=== PATIENT | male | born 1955 | race Caucasian/White ===

== ENCOUNTER 2016-09-11 17:33 | Observation (INO) ==
[2016-09-11] MEDS ORDERED: *HR* LORazepam 1 MG TABLET PO ONE (18:37)
[2016-09-11] MEDS ORDERED: Ipratropium/Albuterol Neb 3 ML IH ONE ×2 (18:37→19:57)
[2016-09-11 18:46] LABS: Basophils % 0.3 %; Eosinophils # 0.1 K/mcL (0.0-0.6); Eosinophils % 0.8 %; Hematocrit 39.6 % (37.5-50.1); Hemoglobin 12.2 g/dL (12.9-16.9); Immature Granulocytes % 0.3 % (0-4); Lymphocytes # 1.1 K/mcL (0.6-4.6); Lymphocytes % 15.7 %; Mean Corpuscular HGB Conc 30.8 g/dL (31.6-35.5); Mean Corpuscular Hemoglobin 28.8 pg (28.0-33.3); Mean Corpuscular Volume 93.6 fL (83.0-100.0); Mean Platelet Volume 10.5 fL (9.4-12.4); Monocytes # 0.7 K/mcL (0.0-1.3); Monocytes % 9.7 %; Neutrophils # 5.3 K/mcL (1.6-8.9); Platelet Count 107 K/mcL (140-400); Red Blood Count 4.23 M/mcL (4.19-5.50); Red Cell Distribution Width 14.4 % (11.5-14.5); Segmented Neutrophils % 73.2 %
[2016-09-11 18:53] LABS: INR 1.2; Prothrombin Time 12.6 Seconds (9.4-12.1)
[2016-09-11 18:56] LABS: Activated Partial Thrombo Time 28.8 Seconds (26.0-36.0)
[2016-09-11 18:59] LABS: Albumin 3.5 g/dL (3.5-5.0); Albumin/Globulin Ratio 0.9 (1.1-2.2); Bilirubin,Direct 0.2 mg/dL (0.0-0.5); Bilirubin,Indirect 0.2 mg/dL (0.0-1.2); Bilirubin,Total 0.4 mg/dL (0.2-1.2); Calcium 9.3 mg/dL (8.6-10.8); Globulin 3.9 g/dL (2.4-3.5); Potassium 3.6 mEq/L (3.5-4.5); Total Protein 7.4 g/dL (6.0-8.3)
--- NOTE | 2016-09-11 19:02 | Emergency Department Note ---
START Narrative - START START: 61-year-old obese male with history of A. fib not anticoagulated, hypertension, COPD and CHF presents with a two-week history of worsening dyspnea. He denies fever, chills, nausea, vomiting, productive cough or hemoptysis. He has audible wheezing, but is able to speak in short sentences. He has severe pitting edema in bilat extremities. Dyspnea protocol orders entered. Patient given a duoneb. He will be moved to a bed as soon as possible.
[2016-09-11] MEDS ORDERED: predniSONE 20 MG TABLET PO ONE (19:58)
[2016-09-11] MEDS ORDERED: Furosemide 40 MG/4 ML VIAL IVP ONE (19:59)
--- NOTE | 2016-09-11 20:01 | Emergency Department Note ---
Disposition Clinical Impression: Acute exacerbation of chronic obstructive airways disease Acute CHF Qualifiers: Congestive heart failure type: systolic Qualified Code(s): I50.21 - Acute systolic (congestive) heart failure Disposition: Admitted As Inpatient Condition: Undetermined Time of Disposition: 20:22 SOB HPI - General Chief Complaint: ED Shortness of Breath/Dyspnea Stated Complaint: BO Time Seen by Provider: 09/11/16 18:29 Source: patient, family Mode of arrival: wheelchair Limitations: physical limitation, other Nursing Notes Reviewed: Yes Vital Signs Reviewed: Yes - History of Present Illness 61-year-old male with history of atrial fibrillation, CHF, COPD, asthma, right [facility] emergency department complaining of difficulty breathing. The patient states that over the course the past 3-4 weeks he has been experiencing swelling of bilateral lower extremities as well as his pelvic region. The patient states he takes Lasix 40 mg twice a day. The patient states that over the course of the past 5 hours he has been experiencing difficulty breathing. The patient's states that the patient walked outside in the heat and began working and that is when he acutely began experiencing wheezing and difficulty breathing. Upon arrival to the emergency department the patient was wheezing and was administered 1 DuoNeb. The patient still feels slightly short of breath at this time but his wheezing is improved slightly. The patient has oxygen at home that he was originally to wear at night only but states that he has been wearing it [id number] over the past few weeks. The patient denies any chest pain, unilateral leg swelling. The patient denies any other complaints and is sitting on the wheelchair being wheeled back to the room speaking full sentences. Pt Subjective Complaint: shortness of breath Severity: mild, moderate Consistency/Duration: intermittent Improves with: oxygen, bronchodilators, upright position Worsens with: exertion Known history of: COPD, asthma, congestive heart failure Associated symptoms: Reports: wheezing Treatment prior to arrival: oxygen, bronchodilator Cough present: No Sputum production: No - Related Data Home oxygen amount: 2 liters Home Medications Medication Instructions Recorded Confirmed Aspirin Enteric Coated [Aspirin EC] 325 mg PO DAILY 05/14/15 09/11/16 Bupropion HCl [Wellbutrin Xl] 300 mg PO DAILY 05/14/15 09/11/16 Furosemide [Lasix] 40 mg PO BID 05/14/15 09/11/16 Albuterol Sulfate [Proair Hfa] 2 puff IH Q4H PRN 09/11/16 09/11/16 Ascorbate Calcium [Vitamin C] 500 mg PO BID 09/11/16 09/11/16 Ergocalciferol (VITAMIN D2) 400 unit PO QWEEK 09/11/16 09/11/16 [Vitamin D] Insulin Glargine,Hum.rec.anlog 40 unit SQ BID 09/11/16 09/11/16 [Basaglar Kwikpen U-100] LORazepam [Ativan] 0.5 mg PO DAILY PRN 09/11/16 09/11/16 Losartan Potassium [Cozaar] 50 - 100 mg PO DAILY 09/11/16 09/11/16 Multivitamin [Multi-Day Vitamins] 1 each PO DAILY 09/11/16 09/11/16 Saw [place] 160 mg PO DAILY 09/11/16 09/11/16 Vitamin E Acid Succinate [Vitamin 400 units PO DAILY 09/11/16 09/11/16 E] Allergies Allergy/AdvReac Type Severity Reaction Status Date / Time No Known Allergies Allergy Verified 05/14/15 16:12 All systems ED: reviewed and negative except as stated. Constitutional: Denies: fever, chills, weakness, weight change Eyes: Denies: eye pain, eye discharge, vision change ENT ED: Denies: ear pain, throat pain, dental pain, hearing loss, epistaxis, congestion, dysphagia Cardiovascular: Reports: dyspnea on exertion, edema. Denies: chest pain, palpitations, syncope Respiratory: Reports: dyspnea, wheezes. Denies: cough, hemoptysis, stridor Gastrointestinal: Denies: abdominal pain, nausea, vomiting, diarrhea, constipation, hematemesis, melena, hematochezia Genitourinary: Denies: urgency, dysuria, frequency, hematuria Musculoskeletal: Denies: back pain, neck pain, arthralgia, myalgia Integumentary: Denies: rash, abrasion, lesions Neurological: Denies: headache, weakness, numbness, paresthesias, confusion, abnormal gait, vertigo Past Medical History - Past Medical History Attestation: Yes The following information was validated with the patient. Source: patient Medical history: Reports: atrial fibrillation, cirrhosis, CHF, COPD, diabetes, hypertension Psychiatric history: Reports: anxiety, depression - Social History Smoking Status: Former smoker Smokeless Tobacco Status: No Alcohol use: Reports: none Drug use: Reports: none Physical Exam - General Limitations: physical limitation, other General appearance: alert, in no apparent distress - Head Head exam: atraumatic, normocephalic, normal inspection - Eye Eye exam: Present: normal appearance, PERRL, EOMI - ENT ENT exam: normal exam, normal oropharynx, mucous membranes moist - Chest Chest inspection: Present: normal inspection, symmetric chest wall rise - Respiratory Respiratory exam: Present: wheezes, accessory muscle use, prolonged expiratory phase - Cardiovascular Cardiovascular exam: Present: normal rhythm, irregular rhythm, normal heart sounds - Abdominal Exam Abdominal exam: Present: soft, Non-Tender. Absent: tenderness, distention, guarding, rebound, rigidity - Extremities Exam Extremities exam: Present: full ROM, pedal edema (Bilateral 1-2+ pitting). Absent: tenderness - Neurological Exam Neurological exam: Present: alert, oriented X3 Course Vital Signs Temperature 98.6 F 09/11/16 18:22 Pulse Rate 70 09/11/16 18:22 Respiratory Rate 22 09/11/16 18:22 Blood Pressure 150/68 09/11/16 18:22 O2 Sat by Pulse Oximetry 95 09/11/16 18:22 Temperature 98.6 F 09/11/16 18:22 Pulse Rate 70 09/11/16 20:25 Respiratory Rate 20 09/11/16 21:06 Blood Pressure 149/78 09/11/16 21:06 O2 Sat by Pulse Oximetry 93 09/11/16 20:25 Oxygen Delivery Oxygen Delivery Nasal Cannula Shortness of Breath/Dyspnea - [facility] Narrative Medical decision making narrative: Patient's workup here in the emergency department demonstrates an elevated CO2 on the MP. The patient has an O2 saturation that is in the upper 90s on 2 L nasal cannula and is mentating appropriately. Patient's chest x-ray does suggest findings consistent with CHF with a mildly elevated BNP. This is likely a combination of possible CHF exacerbation versus COPD exacerbation. The patient does have an extensive history of asthma and COPD and was walking outside when he was experiencing his worsening shortness of breath. The patient however has been experiencing worsening abdominal and lower extremity swelling over the course of the past few weeks. Again given this picture this is likely a combination of the 2. The patient was given 3 duo nebs here in the emergency department as well as by mouth steroids. The patient was administered IV Lasix as well. The patient is able to speak in complete sentences at this time. He is resting comfortably on 2 L nasal cannula. The patient does have wheezing is still present prior to administration of the second set of duo nebs, as he was only administered one DuoNeb in fast track area. We had an extensive conversation with the patient and significant other about admission versus going home and we feel comfortable admitting the patient to the hospital at this time for further care and workup. The patient agrees to IV diuresis as well as breathing treatments with admission to likely observation unit. The patient has no unilateral leg swelling, no recent surgeries or immobilizations. Patient does have an atrial fibrillation history but is not currently in atrial fibrillation. She accepted by hospitalist, Dr. Timmons. - Medical Records Medical records reviewed: Yes I reviewed the patient's medical records. - Lab Data Lab results reviewed: Yes I reviewed the patient's lab results. Result diagrams: 09/11/16 18:39 09/11/16 18:39 Lab Results 09/11/16 09/11/16 09/11/16 Range/Units 18:39 18:39 18:39 WBC 7.2 (4.3-11.1) K/mcL RBC 4.23 (4.19-5.50) M/mcL Hgb 12.2 L (12.9-16.9) g/dL Hct 39.6 (37.5-50.1) % MCV 93.6 (83.0-100.0) fL MCH 28.8 (28.0-33.3) pg MCHC 30.8 L (31.6-35.5) g/dL RDW 14.4 (11.5-14.5) % Plt Count 107 L (140-400) K/mcL MPV 10.5 (9.4-12.4) fL Immature Gran % 0.3 (0-4) % Seg Neutrophils % 73.2 % Lymphocytes % 15.7 % Monocytes % 9.7 % Eosinophils % 0.8 % Basophils % 0.3 % Neutrophils # 5.3 (1.6-8.9) K/mcL Lymphocytes # 1.1 (0.6-4.6) K/mcL Monocytes # 0.7 (0.0-1.3) K/mcL Eosinophils # 0.1 (0.0-0.6) K/mcL Basophils # 0.0 (0.0-0.2) K/mcL PT 12.6 H (9.4-12.1) Seconds INR 1.2 APTT 28.8 (26.0-36.0) Seconds Sodium 144 (136-145) mEq/L Potassium 3.6 (3.5-4.5) mEq/L Chloride 99 (98-109) mEq/L Carbon Dioxide 40 H* (19-29) mEq/L BUN 22 (8-26) mg/dL Creatinine 1.47 H (0.72-1.25) mg/dL Est GFR ( Amer) 59 L (> 60) Est GFR (Non-Af Amer) 49 L (> 60) BUN/Creatinine Ratio 15 (6-26) Glucose 90 (70-99) mg/dL Calculated Osmolality 301 H (280-300) Calcium 9.3 (8.6-10.8) mg/dL Total Bilirubin 0.4 (0.2-1.2) mg/dL Direct Bilirubin 0.2 (0.0-0.5) mg/dL Indirect Bilirubin 0.2 (0.0-1.2) mg/dL AST 23 (5-34) Units/L ALT 15 (0-55) Units/L Alkaline Phosphatase 80 (38-126) Units/L Troponin I (0-0.03) ng/mL B-Natriuretic Peptide (0-100) pg/mL Serum Total Protein 7.4 (6.0-8.3) g/dL Albumin 3.5 (3.5-5.0) g/dL Globulin 3.9 H (2.4-3.5) g/dL Albumin/Globulin Ratio 0.9 L (1.1-2.2) 09/11/16 09/11/16 Range/Units 18:39 18:39 WBC (4.3-11.1) K/mcL RBC (4.19-5.50) M/mcL Hgb (12.9-16.9) g/dL Hct (37.5-50.1) % MCV (83.0-100.0) fL MCH (28.0-33.3) pg MCHC (31.6-35.5) g/dL RDW (11.5-14.5) % Plt Count (140-400) K/mcL MPV (9.4-12.4) fL Immature Gran % (0-4) % Seg Neutrophils % % Lymphocytes % % Monocytes % % Eosinophils % % Basophils % % Neutrophils # (1.6-8.9) K/mcL Lymphocytes # (0.6-4.6) K/mcL Monocytes # (0.0-1.3) K/mcL Eosinophils # (0.0-0.6) K/mcL Basophils # (0.0-0.2) K/mcL PT (9.4-12.1) Seconds INR APTT (26.0-36.0) Seconds Sodium (136-145) mEq/L Potassium (3.5-4.5) mEq/L Chloride (98-109) mEq/L Carbon Dioxide (19-29) mEq/L BUN (8-26) mg/dL Creatinine (0.72-1.25) mg/dL Est GFR ( Amer) (> 60) Est GFR (Non-Af Amer) (> 60) BUN/Creatinine Ratio (6-26) Glucose (70-99) mg/dL Calculated Osmolality (280-300) Calcium (8.6-10.8) mg/dL Total Bilirubin (0.2-1.2) mg/dL Direct Bilirubin (0.0-0.5) mg/dL Indirect Bilirubin (0.0-1.2) mg/dL AST (5-34) Units/L ALT (0-55) Units/L Alkaline Phosphatase (38-126) Units/L Troponin I 0.02 (0-0.03) ng/mL B-Natriuretic Peptide 163 H (0-100) pg/mL Serum Total Protein (6.0-8.3) g/dL Albumin (3.5-5.0) g/dL Globulin (2.4-3.5) g/dL Albumin/Globulin Ratio (1.1-2.2) - Radiology Data Radiology results reviewed: Yes I reviewed the patient's radiology results. - EKG Data EKG attestation: Yes I reviewed and interpreted this EKG. EKG results narrative: Heart rate 74 bpm. NM interval 160 ms. QTc 442. Normal axis. Normal sinus rhythm. No ST elevation or ST depression noted. EKG similar to EKG from 2012. No acute changes noted. Attestation Statement - Attestation Attestation: I examined this patient and my medical decision-making was reviewed with the Resident Physician. I agree with the documented findings, disposition and treatment plan as described except to the extent set forth below. 61-year-old male presents ED because different pain. Had a only progression of increasing dyspnea along with peripheral edema. Complains orthopnea. No chest discomfort. No productive cough. No fevers or chills. No abdominal pain. Morbidly obese male with mild tachypnea. Oropharynx clear. Neck is supple. Chest symmetrical diminished breath sounds in all lung amin. Cardiac exam distant heart tones with systolic ejection murmur heard at the upper sternal borders. Abdomen soft nontender. Extremities with bilateral pitting edema. Chest x-ray with cardiomegaly and mild pulmonary edema DuoNeb treatments along with steroids were administered. He received IV Lasix. Has moderate elevation of his serum bicarbonate He will be admitted for further treatment and evaluation.
--- NOTE | 2016-09-11 22:07 | Internal Med History&Physical ---
Date of Encounter: 09/11/16 Time of Encounter: 22:03 Assessment and Plan (1) Acute CHF Current visit: Yes Status: Acute patient a hx of systolic heart failure-LVEF of 50% with mild diastolic dysfunction, on medications at home comes in with signs and symptoms concerning for acute decompensation, he denies medication non adherence, salt and fluid indiscretion, we will do aggressive diuresis, daily weights, fluid and salt restriction, will update 2D Echo Qualifiers: Congestive heart failure type: systolic Qualified Code(s): I50.21 - Acute systolic (congestive) heart failure (2) Renal insufficiency Current visit: Yes Status: Acute pt with baseline creatinine of 1.22 now comes in with creatinine of 1.47, most likely from either cardiorenal syndrome, we will do aggressive diuresis and follow BMP (3) HTN (hypertension) Current visit: Yes Status: Chronic do not see any antihypertensives on his home medication, his BP here is poorly controlled, we will need to verify his home medications, Qualifiers: Hypertension type: essential hypertension Qualified Code(s): I10 - Essential (primary) hypertension (4) COMPA (obstructive sleep apnea) Current visit: Yes Status: Chronic reports that he never completed the sleep study because he is claustrophobic and unable to tolerate the mask, will defer to outpatient, (5) COPD (chronic obstructive pulmonary disease) Current visit: Yes Status: Chronic not in an exacerbation currently will do nebs PRN Qualifiers: COPD type: emphysema Emphysema type: panlobular Qualified Code(s): J43.1 - Panlobular emphysema (6) Afib Current visit: Yes Status: Chronic has never had a stroke, cardioversion or systemic anticoagulation, unclear if he is on anything for rate control, currently in sinus rhythm, we will place on metoprolol whilst verifying his home medications Qualifiers: Atrial fibrillation type: paroxysmal Qualified Code(s): I48.0 - Paroxysmal atrial fibrillation (7) Diabetes mellitus Current visit: Yes Status: Chronic patient is on insulin at home, we will do basal bolus insulin regimen, his last known A1c was 8.2% in 02/2014, we will need to update that Qualifiers: Diabetes mellitus type: type 2 Diabetes mellitus complication status: with neurologic complications Diabetes mellitus complication detail: with polyneuropathy Diabetes mellitus alf insulin use: with terminal system operator use Qualified Code(s): E11.42 - Type 2 diabetes mellitus with diabetic polyneuropathy; Z79.4 - USP (current) use of insulin Internal Medicine - H&P: HPI Chief complaint: shortness of breath Admitted From: Emergency Dept Plans for Post Hospital Care: Home History of present illness: Mr. Gutierrez is a 61 year old male with a hx of systolic heart failure/with mild diastolic involvement with a LVEF of 50-55% in 2013 comes in with worsening shortness of breath. He was reportedly in his usual state of health until about 3-4 weeks prior to presentation when he began to experience worsening dyspnea, dyspnea on exertion, reduced exercise tolerance, increased weight gain, worsening lower extremity swelling involving his abdominal wall. He kept taking his lasix as usual per patient. He was also compliant with his fluid restriction and salt restriction but he still continued to gain weight. He subsequently developed orthopnea and paroxysmal nocturnal dyspnea so he started sleeping in a chair at night. He comes in today because for the past 4 days his symptoms have become unbearable. PAST MEDICAL HISTORY: Is notable for tobacco abuse, Paroxysmal AFIB since 2010 Degenerative joint disease, Diabetes mellitus type 2. Hypertension, Hypokalemia. Anxiety COPD Heart failure Obesity Sleep apnea not on CPAP machine, he could not tolerate the sleep study due to claustrophobia Peripheral neuropathy. Echo in 12/2013 LVEF 50-55%. Grossly normal left ventricular structure and function. Mild left ventricular diastolic dysfunction. Right ventricle was not well visualized. No evidence of pulmonary hypertension. No significant valvular dysfunction. PAST SURGICAL HISTORY: Knee arthroscopic surgery, left, fatty tumor removed from the left shoulder area excision of a heel spur. Right knee replacement. SOCIAL HISTORY: He is and lives with spouse who was at bedside with him today. He has previously consumed alcohol approximately a six pack or two per week, but has not consumed alcohol for greater than 20 years. Smoked 2ppd for years but quit in 2011, he denies any illicit drug use. FAMILY HISTORY: Gastric cancer in the patient's mother. She is at age 80. Coronary artery disease runs in the family. Past Med Surg Social Fam HX - Past Medical History Medical history: atrial fibrillation, cirrhosis, CHF, COPD, diabetes, hypertension Psychiatric history: anxiety, depression - Social History Smoking Status: Former smoker Smokeless Tobacco Status: No Alcohol use: none Drug use: none - Family History Mother Cause of : colon Ca Hx Family Cancer: Yes (Colon) Father Hx Family Cardiac Disorders: (CABG, HTN) Hx Family Respiratory Disorders: (Breathing Issues) Hx Family Endocrine Disorder: (Diabetic) Internal Medicine - H&P: Meds Aspirin Enteric Coated [Aspirin EC] 325 mg PO DAILY 05/14/15 [History] Bupropion HCl [Wellbutrin Xl] 300 mg PO DAILY 05/14/15 [History] Furosemide [Lasix] 40 mg PO BID 05/14/15 [History] Albuterol Sulfate [Proair Hfa] 2 puff IH Q4H PRN 09/11/16 [History] Ascorbate Calcium [Vitamin C] 500 mg PO BID 09/11/16 [History] Ergocalciferol (VITAMIN D2) [Vitamin D] 400 unit PO QWEEK 09/11/16 [History] Insulin Glargine,Hum.rec.anlog [Basaglar Kwikpen U-100] 40 unit SQ BID 09/11/16 [History] LORazepam [Ativan] 0.5 mg PO DAILY PRN 09/11/16 [History] Losartan Potassium [Cozaar] 50 - 100 mg PO DAILY 09/11/16 [History] Multivitamin [Multi-Day Vitamins] 1 each PO DAILY 09/11/16 [History] Saw [place] 160 mg PO DAILY 09/11/16 [History] Vitamin E Acid Succinate [Vitamin E] 400 units PO DAILY 09/11/16 [History] Allergies No Known Allergies Allergy (Verified 05/14/15 16:12) All Systems PM: A 10-system review of systems was performed and is negative for pertinent findings except as documented above in the HPI. - Constitutional Vitals: Temp Pulse Resp BP Pulse Ox 97.8 F 78 17 154/73 92 09/11/16 21:52 09/11/16 21:52 09/11/16 21:52 09/11/16 21:52 09/11/16 21:52 GENERAL: Adult male, sitting on the edge of the bed, Alert, in mild resp distress, HEENT: NC/AT, EOMI, PERRLA, anicteric sclera, normal conjunctiva, supple, clear nares, moist mucous membranes, RESP: crackles over the middle to the lower lung zones, no wheeze CARDIO: Normal hearts sounds; S1 and 2, RRR with no murmurs, no JVD, GI: anterior wall edema, Soft, full, no tenderness, no organomegaly felt, normal bowel sounds heard MUSCULOSKELETAL: grossly normal movements bilaterally, no deformities noted, firm edema from the lower extremities up to the anterior abdominal wall involving the scrotal area NEUROLOGIC: CN 2-12 intact grossly. No gross motor/sensory deficit appreciated, PSYCHIATRY: AAO x 3. Mood is fair, SKIN: reddened shins bilaterally with some blisters, chronic looking bilateral lower extremities Internal Med - H&P Results - Labs CBC & Chem 7: 09/11/16 18:39 09/11/16 18:39 - EKG Data -: EKG Interpreted by Myself (sinus rhythm with PVC's, low QRS complex) - Diagnostic Studies Chest x-ray Status: image reviewed by me
[2016-09-11] MEDS ORDERED: Naloxone 0.4 MG/ML INJ IVP PRN (22:31)
[2016-09-11] MEDS ORDERED: *HR* LORazepam 0.5 MG TABLET PO PRN (22:33)
[2016-09-11] MEDS ORDERED: (Ergocalciferol (Vitamin D2) [Vitamin D] 400 UNIT) PO SCH (22:45)
[2016-09-11] MEDS ORDERED: NON-FORMULARY MEDICATION 1 EACH EACH (Insulin Glargine,Hum.Rec.Anlog [Basaglar Kwikpen U-1 SQ SCH (22:45)
[2016-09-11] MEDS ORDERED: D5% in Water 1,000 ML IVC PRN (22:46)
[2016-09-11] MEDS ORDERED: *HR* Dextrose 50 % in Water (Syg) 50 ML SYRINGE IVP PRN (22:46)
[2016-09-11] MEDS ORDERED: Dextrose Gel 15 GM PO PRN ×2 (22:46)
[2016-09-11] MEDS ORDERED: Albuterol 2.5 MG/3 ML NEBULIZER IH PRN (22:49)
[2016-09-12] MEDS: Furosemide 20 MG/2 ML VIAL IVP SCH ×3 (00:02→19:09)
[2016-09-12] MEDS: Insulin LISPRO 300 UNITS/3 ML VIAL SQ SCH ×6 (00:07→22:17)
[2016-09-12] MEDS: Insulin DETEMIR 100 UNIT/ML X5UNITS SQ SCH ×3 (01:36→22:17)
[2016-09-12 04:46] LABS: Calcium 9.1 mg/dL (8.6-10.8); Magnesium 1.9 mg/dL (1.6-2.6); Phosphorous 2.9 mg/dL (2.3-4.7); Potassium 3.8 mEq/L (3.5-4.5)
[2016-09-12 04:57] LABS: Hemoglobin A1C 5.9 %
[2016-09-12 05:26] LABS: ABG Base Excess 14.4 mEq/L (-2.0 to 3.0); ABG HCO3 41.8 mEQ/L (21-27); ABG Oxygen Saturation 91 % (95-98); ABG PCO2 63 mmHg (35-45); ABG PH 7.43 pH Units (7.32-7.45); ABG PO2 58 mmHg (85-104); ABG TCO2 43.7 mEq/L (20-26)
[2016-09-12 05:27] LABS: Blood Gas FiO2 26 %; Blood Gas Liter Flow 1.5 L/MIN
[2016-09-12] MEDS: *HR* Heparin 5,000 UNIT/ML VIAL SQ SCH ×3 (05:37→22:15)
[2016-09-12] MEDS: Multivit/Ca/Min/Fe/FA 1 TAB TABLET PO SCH (08:02)
[2016-09-12] MEDS: Aspirin Enteric Coated 325 MG Tablet PO SCH (08:02)
[2016-09-12] MEDS: BuPROPion XL (24 HR) 150 MG TABLET PO SCH (08:03)
[2016-09-12] MEDS: Ascorbic Acid 500 MG TABLET PO SCH ×2 (08:03→22:15)
[2016-09-12] MEDS ORDERED: SAW PALMETTO 160 MG PO SCH (09:00)
[2016-09-12] MEDS: Cholecalciferol (D-3) 1,000 UNIT TABLET PO SCH (11:46)
[2016-09-12] MEDS ORDERED: Perflutren Lipid Microsphere 1.3 ML in 0.9 % Sodium Chloride 8.7 ML IVP ONE (13:01)
[2016-09-12] MEDS ORDERED: Acetaminophen 325 MG TABLET PO PRN (14:00)
[2016-09-12] MEDS ORDERED: traMADol 50 MG TABLET PO PRN (14:03)
--- NOTE | 2016-09-12 14:28 | Internal Med Progress Note ---
<Jose C Davis - Last Filed: 09/12/16 14:26> Date of Encounter: 09/12/16 Time of Encounter: 02:30 - Assessment and plan (1) Acute CHF Current Visit: Yes Status: Acute Assessment and plan: Patient a hx of systolic heart failure-last echocardiogram revealed LVEF of 50% with mild diastolic dysfunction -On medications at home comes in with signs and symptoms concerning for acute decompensation -Denies medication non adherence -Patient was given Lasix. -Strict intake and output. -Patient has been placed on salt restricted diet. -Daily weights. -Repeat echocardiogram was performed today. Awaiting results. Qualifiers: Congestive heart failure type: systolic Qualified Code(s): I50.21 - Acute systolic (congestive) heart failure (2) Renal insufficiency Current Visit: Yes Status: Acute Assessment and plan: Patient with baseline creatinine of 1.22 -Aggressive diuresis and follow BMP. -Creatinine this morning was 1.48. (3) COPD (chronic obstructive pulmonary disease) Current Visit: Yes Status: Chronic Assessment and plan: Patient states that he is not having any difficulty breathing at this time. -Patient on nasal cannula. -nebs PRN Qualifiers: COPD type: emphysema Emphysema type: panlobular Qualified Code(s): J43.1 - Panlobular emphysema (4) HTN (hypertension) Current Visit: Yes Status: Chronic Assessment and plan: Patient's blood pressure this morning was 132/83. Qualifiers: Hypertension type: essential hypertension Qualified Code(s): I10 - Essential (primary) hypertension (5) COMPA (obstructive sleep apnea) Current Visit: Yes Status: Chronic Assessment and plan: Patient has never completed a sleep study. -He has claustrophobia and is unable to tolerate the mask. -Follow up in the outpatient setting. - Subjective Interval history: Patient was seen and examined at bedside this afternoon. Patient states that he has some lower back pain, which he states he has had for a very long time. He normally takes aspirin for his pain. This pain is located at the level of L5 -S1. He describes it as a constant pain. He states that his breathing is better since admission. He denies having any chest pain, cough, shortness of breath, fever, chills, or sweating. He has no other complaints at this time. - Constitutional Vitals: Temp Pulse Resp BP Pulse Ox 98.3 F 81 20 130/72 93 09/12/16 11:18 09/12/16 11:18 09/12/16 11:18 09/12/16 11:18 09/12/16 11:18 - Head Head exam: Present: atraumatic, normocephalic - Eye Eye exam: Present: conjuntiva pink, sclera anicteric - Neck Neck exam general surgery: Present: supple, trachea midline. Absent: lymphadenopathy - Respiratory Respiratory exam: Present: CTAB. Absent: accessory muscle use, rales, rhonchi, wheezes - Cardiovascular Cardiovascular exam: Present: RRR, +S1, +S2. Absent: diastolic murmur, gallop, rubs, systolic murmur - Extremities Exam Extremities exam: Present: warm, radial pulses palpable and symetrical - Skin Skin exam: Present: dry, intact Internal Medicine: Result - Labs CBC & Chem 7: 09/11/16 18:39 09/12/16 04:18 Labs: BMP 09/12/16 04:18 Sodium 142 Potassium 3.8 Chloride 96 L Carbon Dioxide 42 H* BUN 22 Creatinine 1.48 H Glucose 173 H Calcium 9.1 - ABG Interpretation ABG results: ABG ABG pH 7.43 pH Units (7.32-7.45) 09/12/16 05:12 ABG pCO2 63 mmHg (35-45) H 09/12/16 05:12 ABG pO2 58 mmHg (85-104) L 09/12/16 05:12 ABG O2 Saturation 91 % (95-98) L 09/12/16 05:12 PT/INR, D-dimer PT 12.6 Seconds (9.4-12.1) H 09/11/16 18:39 Consult Discharge Plan - Plan Referrals: Олег Fiore MD [Primary Care Provider] - (web request sent on 09/12/16 ) <Gian Murray H - Last Filed: 09/12/16 14:46> Date of Encounter: 09/12/16 - Constitutional Vitals: Temp Pulse Resp BP Pulse Ox 98.3 F 81 20 130/72 93 09/12/16 11:18 09/12/16 11:18 09/12/16 11:18 09/12/16 11:18 09/12/16 11:18 Internal Medicine: Result - Labs CBC & Chem 7: 09/11/16 18:39 09/12/16 04:18 Labs: BMP 09/12/16 04:18 Sodium 142 Potassium 3.8 Chloride 96 L Carbon Dioxide 42 H* BUN 22 Creatinine 1.48 H Glucose 173 H Calcium 9.1 - ABG Interpretation ABG results: ABG ABG pH 7.43 pH Units (7.32-7.45) 09/12/16 05:12 ABG pCO2 63 mmHg (35-45) H 09/12/16 05:12 ABG pO2 58 mmHg (85-104) L 09/12/16 05:12 ABG O2 Saturation 91 % (95-98) L 09/12/16 05:12 PT/INR, D-dimer PT 12.6 Seconds (9.4-12.1) H 09/11/16 18:39 - Attending Attestation Diffuse congestion with crackles in both lung amin Acute systolic and diastolic CHF exacerbation Continue Lasix Chronic back pain, may try tramadol as needed I examined this patient and my medical decision-making was reviewed with the Resident Physician. I agree with the documented findings, disposition and treatment plan as described except to the extent set forth below.
[2016-09-12] MEDS: Acetaminophen 325 MG TABLET PO PRN ×2 (14:45→22:14)
--- NOTE | 2016-09-12 15:12 | Electrocardiograph Report ---
[place] [id number] Test Date: 2016-09-11 Pat Name: Davion Gutierrez Department: 102 Room: 2A Gender: M [employer]: Latha : 1955 Requested By: Alfreda Ballesteros Order Number: [id number] Reading MD: Vaughn Ashton MD Measurements Intervals [place] Rate: 74 P: 39 ND: 168 QRS: 13 QRSD: 132 T: 65 QT: 414 QTc: 442 Interpretive Statements SINUS RHYTHM WITH OCCASIONAL SUPRAVENTRICULAR PREMATURE COMPLEXES BASELINE ARTIFACT Electronically Signed On 09-12-2016 15:10:20 EDT by Vaughn Ashton MD
[2016-09-13] MEDS: *HR* Heparin 5,000 UNIT/ML VIAL SQ SCH ×2 (05:13→15:25)
[2016-09-13] MEDS: Acetaminophen 325 MG TABLET PO PRN (05:17)
[2016-09-13] MEDS: Insulin LISPRO 300 UNITS/3 ML VIAL SQ SCH ×2 (07:26→11:47)
[2016-09-13] MEDS: Cholecalciferol (D-3) 1,000 UNIT TABLET PO SCH (09:12)
[2016-09-13] MEDS: Furosemide 20 MG/2 ML VIAL IVP SCH (09:12)
[2016-09-13] MEDS: BuPROPion XL (24 HR) 150 MG TABLET PO SCH (09:12)
[2016-09-13] MEDS: Ascorbic Acid 500 MG TABLET PO SCH (09:12)
[2016-09-13] MEDS: Multivit/Ca/Min/Fe/FA 1 TAB TABLET PO SCH (09:12)
[2016-09-13] MEDS: Insulin DETEMIR 100 UNIT/ML X5UNITS SQ SCH (09:12)
[2016-09-13] MEDS: Aspirin Enteric Coated 325 MG Tablet PO SCH (09:12)
[2016-09-13 10:56] LABS: Basophils % 0.7 %; Eosinophils # 0.1 K/mcL (0.0-0.6); Eosinophils % 1.2 %; Hematocrit 38.5 % (37.5-50.1); Hemoglobin 12.2 g/dL (12.9-16.9); Immature Granulocytes % 0.2 % (0-4); Immature Platelets 6.7 % (1.1-6.1); Mean Corpuscular HGB Conc 31.7 g/dL (31.6-35.5); Mean Corpuscular Hemoglobin 29.5 pg (28.0-33.3); Mean Platelet Volume 11.1 fL (9.4-12.4); Monocytes # 0.8 K/mcL (0.0-1.3); Monocytes % 12.6 %; Neutrophils # 4.1 K/mcL (1.6-8.9); Platelet Count 117 K/mcL (140-400); Red Blood Count 4.14 M/mcL (4.19-5.50); Red Cell Distribution Width 14.5 % (11.5-14.5); Segmented Neutrophils % 68.3 %
[2016-09-13 11:08] LABS: Calcium 9.6 mg/dL (8.6-10.8); Potassium 3.7 mEq/L (3.5-4.5)
--- NOTE | 2016-09-13 11:26 | Discharge Summary ---
<Jose C Davis - Last Filed: 09/13/16 11:37> Date of Encounter: 09/13/16 Time of Encounter: 09:45 - Discharge Diagnosis (1) Acute CHF Priority: Primary Status: Acute Comments: Patient a hx of systolic heart failure-last echocardiogram revealed LVEF of 50% with mild diastolic dysfunction -On medications at home comes in with signs and symptoms concerning for acute decompensation -Denies medication non adherence -Patient on Lasix. Will be continued on Lasix 60 mg twice a day on discharge. -Patient has been placed on salt restricted diet. -Repeat echocardiogram was performed. Showed ejection fraction 55-60%. Qualifiers: Congestive heart failure type: systolic Qualified Code(s): I50.21 - Acute systolic (congestive) heart failure (2) Renal insufficiency Priority: Secondary Status: Acute Comments: Patient with baseline creatinine of 1.22 -Aggressive diuresis and follow BMP. -Creatinine this morning was 1.59. (3) COPD (chronic obstructive pulmonary disease) Priority: Secondary Status: Chronic Comments: Patient states that he is not having any difficulty breathing at this time. -Patient on nasal cannula. -nebs PRN. -will be given oxygen at home. Normally on oxygen at night. Qualifiers: COPD type: emphysema Emphysema type: panlobular Qualified Code(s): J43.1 - Panlobular emphysema (4) HTN (hypertension) Priority: Secondary Status: Chronic Comments: Patient's blood pressure this morning was 151/72. Qualifiers: Hypertension type: essential hypertension Qualified Code(s): I10 - Essential (primary) hypertension (5) COMPA (obstructive sleep apnea) Priority: Secondary Status: Chronic Comments: Patient has never completed a sleep study. -He has claustrophobia and is unable to tolerate the mask. -Follow up in the outpatient setting. - Discharge Medications Prescriptions: Furosemide [Lasix] 60 mg IVP BIDDIURETIC #60 vial Potassium Chloride 10 meq PO DAILY #30 tab.er.prt Home Medications: Aspirin Enteric Coated [Aspirin EC] 325 mg PO DAILY 05/14/15 [History] Bupropion HCl [Wellbutrin Xl] 300 mg PO DAILY 05/14/15 [History] Furosemide [Lasix] 40 mg PO BID 05/14/15 [History] Albuterol Sulfate [Proair Hfa] 2 puff IH Q4H PRN 09/11/16 [History] Ascorbate Calcium [Vitamin C] 500 mg PO BID 09/11/16 [History] Ergocalciferol (VITAMIN D2) [Vitamin D] 400 unit PO QWEEK 09/11/16 [History] Insulin Glargine,Hum.rec.anlog [Basaglar Kwikpen U-100] 40 unit SQ BID 09/11/16 [History] LORazepam [Ativan] 0.5 mg PO DAILY PRN 09/11/16 [History] Losartan Potassium [Cozaar] 50 - 100 mg PO DAILY 09/11/16 [History] Multivitamin [Multi-Day Vitamins] 1 each PO DAILY 09/11/16 [History] Saw [place] 160 mg PO DAILY 09/11/16 [History] Vitamin E Acid Succinate [Vitamin E] 400 units PO DAILY 09/11/16 [History] Furosemide [Lasix] 60 mg IVP BIDDIURETIC #60 vial 09/13/16 [Rx] Potassium Chloride 10 meq PO DAILY #30 tab.er.prt 09/13/16 [Rx] Allergies/Adverse Reactions: Allergies No Known Allergies Allergy (Verified 05/14/15 16:12) Procedures/tests Complete & Pending: Procedures Performed prior 72 hours Category Date Time Status EV echocardiogram w enhance Routine Y 09/12/16 13:00 Completed Date of admission: 09/11/16 20:35 Primary care physician: Олег Fiore MD Consults: 09/13/16 09:59 Consult to Physical Science Teacher [CONS] Routine Reason for SW Consult: O2 set up Discharging clinician: Jose C Davis Anticipated date of discharge: 09/13/16 - Patient Status Disposition: Home, Self-Care Condition: Good Overall status at discharge: patient is progressing back to baseline - Discharge Instructions Follow Up With: Олег Fiore MD [Primary Care Provider] - 09/19/16 3:00 pm ( ) Additional Instructions: Take Lasix 60 mg by mouth twice a day. Take 10 mEq potassium once a day. - Diet and Activity Activity: increase activity as tolerated Diet: low salt diet Hospital course: Mr. Gutierrez is a 61 year old male with history of AFib, CHF, COPD, asthma, who presented to the ED complaining of difficulty breathing. The patient states that over the course of 3-4 weeks he has been experiencing swelling of bilateral lower extremities as well as his pelvic region. He takes Lasix 40 mg twice a day. He says that he became short of breath about 5 hours before admission. The patient's states that the patient walked outside in the heat and began working and that is when he acutely began experiencing wheezing and difficulty breathing. Upon arrival to the ED, the patient was wheezing and was administered 1 DuoNeb. On admission, patient was still short of breath and still wheezing. His condition however had improved slightly. The patient states that he is on home oxygen which she usually uses at night. However, over the past several weeks he has been wearing his oxygen [id number]. The patient denied any chest pain or unilateral leg swelling. Patient had an echocardiogram previously in the year 2014 which showed an ejection fraction of 50%. Repeat echocardiogram was done after cardiology was consulted. A repeat echo showed an ejection fraction of 55-60%. During his stay in the hospital, patient did complain of some lower back pain primarily located in the L5-S1 area. Patient states that he has had this problem for a very long time, and that he normally takes aspirin at home to deal with this. Patient states that other pain medications are not very effective. Patient was given a lidocaine patch in the hospital, which was very effective in helping his back pain. Over the next 2 days, the patient's condition did improve. His breathing had improved dramatically, although he still wore oxygen during the day. Patient was given Lasix 60 mg twice a day. Swelling in his legs decreased. She will be sent home on 60 mg of Lasix twice a day, as well as 10 mEq of potassium per day. On date of discharge, the patient denies having any shortness of breath or chest pain. - Time Spent with Patient Total time spent providing and/or coordinating discharge services: - Constitutional Vitals: Temp Pulse Resp BP Pulse Ox 98.0 F 91 26 151/72 95 09/13/16 06:40 09/13/16 06:40 09/13/16 06:40 09/13/16 06:40 09/13/16 10:00 - Head Head exam: Present: atraumatic, normocephalic - Neck Neck exam general surgery: Present: supple, trachea midline. Absent: lymphadenopathy - Respiratory Respiratory exam: Present: CTAB. Absent: accessory muscle use, rales, rhonchi, wheezes - Cardiovascular Cardiovascular exam: Present: RRR, +S1, +S2. Absent: diastolic murmur, gallop, rubs, systolic murmur - Extremities Exam Extremities exam: Present: pedal edema. Absent: calf tenderness, cyanotic Additional comments: Patient has swelling in his lower extremities bilaterally. - Skin Skin exam: Present: dry, intact <PhillipsindhuGian nayak - Last Filed: 09/13/16 11:50> Date of Encounter: 09/13/16 Procedures/tests Complete & Pending: Procedures Performed prior 72 hours Category Date Time Status EV echocardiogram w enhance Routine Y 09/12/16 13:00 Completed Date of admission: 09/11/16 20:35 Primary care physician: Олег Fiore MD Consults: 09/13/16 09:59 Consult to Physical Science Teacher [CONS] Routine Reason for SW Consult: O2 set up Hospital course: Mr. Gutierrez is a 61 year old male - Time Spent with Patient Total time spent providing and/or coordinating discharge services: - Constitutional Vitals: Temp Pulse Resp BP Pulse Ox 98.1 F 83 18 143/84 94 09/13/16 11:40 09/13/16 11:40 09/13/16 11:40 09/13/16 11:40 09/13/16 11:40 - Attending Attestation Acute systolic and diastolic CHF exacerbation May follow-up with cardiology within the next 2 weeks Time spent on this discharge 40 minutes I examined this patient and my medical decision-making was reviewed with the Resident Physician. I agree with the documented findings, disposition and treatment plan as described except to the extent set forth below.
[2016-09-13 11:42] VITALS: BP 143/84
== END 2016-09-13 16:35 | disposition home or self-care (01) ==
LOC: EMEROO 17:33 → 2ANU 17:33
PROVIDERS: ADMIT Internal Medicine; ATTEND Internal Medicine